=== PATIENT | male | born 1990 | race Hispanic/Latino ===

== ENCOUNTER → 2018-02-21 | Outpatient (CLI) | payer OTHER ==
--- NOTE | 2018-02-21 16:30 | Diagnostic Imaging Report ---
EXAM: KNEE RIGHT THREE VIEWS DATE: 02/21/2018 4:07 PM INDICATION: Knee pain COMPARISON: None FINDINGS: No fracture or subluxation. No degenerative changes. Moderate joint effusion. IMPRESSION: Moderate joint effusion. Signed by: Dr. Srinivasa Jean-Baptiste MD on 02/21/2018 4:27 PM
== END ==
LOC: RAD 16:00
PROVIDERS: ATTEND Family Medicine
DX: M25.561 Pain in right knee (principal)